=== PATIENT | male | born 1990 | race Asian ===

== ENCOUNTER 2019-04-20 19:26 | Emergency (ER) | payer OTHER ==
[~2019-04-20] VITALS: Ht 172.7 cm; Wt 93.2 kg
[2019-04-20] MEDS ORDERED: NORCO 5/325MG TABLET (BULK FOR ED) PO ONE (21:15)
[2019-04-20] MEDS ORDERED: ANUSOL HC CREAM 30GM TOP ONE (21:15)
[2019-04-20] MEDS ORDERED: NORC1TAB7 PO (21:30)
[2019-04-20 21:42] VITALS: BP 121/76
== END 2019-04-20 21:43 | disposition home or self-care (01) ==
LOC: M ED 19:26
DX: R10.2 Pelvic and perineal pain (principal)